=== PATIENT | female | born 1985 | race Caucasian/White ===

== ENCOUNTER 2020-06-23 20:14 | Emergency (ER) | payer MEDICAID, OTHER ==
[~2020-06-23] VITALS: Ht 157.5 cm; Wt 68.0 kg
--- NOTE | 2020-06-23 21:29 | ED General ---
General Stated Complaint: MIGRAINE Source of Information: Patient Exam Limitations: No Limitations History of Present Illness Date Seen by Provider: June 23, 2020 Time Seen by Provider: 21:20 Initial Comments To ER with severe headache. She rates it at 12 out of 10. It began yesterday and started very mild. It has progressed throughout the course of the day and is in the back of her head and behind her eyes. She has light sensitivity and nausea and vomiting. She does not have a history of migraines. Timing/Duration: 1-2 Days Severity: Moderate Associated Systoms: Headaches, Nausea/Vomiting Allergies and Home Medications Allergies Coded Allergies: iodine (Verified Allergy, Unknown, 06/23/20) Patient Home Medication List Home Medication List Reviewed: Yes Review of Systems Review of Systems Constitutional: see HPI EENTM: see HPI Respiratory: no symptoms reported Cardiovascular: no symptoms reported Genitourinary: no symptoms reported Musculoskeletal: no symptoms reported Skin: no symptoms reported Psychiatric/Neurological: Headache Hematologic/Lymphatic: No Symptoms Reported Physical Exam Vital Signs Capillary Refill : Height, Weight, BMI Height: '" Weight: lbs. oz. kg; BMI Method: General Appearance: No Apparent Distress, WD/WN, Other (Cruz her eyes from the light, tearful.) Eyes: Bilateral Eye Normal Inspection, Bilateral Eye PERRL, Bilateral Eye EOMI HEENT: PERRL/EOMI, TMs Normal Neck: Full Range of Motion, Normal Inspection Respiratory: No Accessory Muscle Use, No Respiratory Distress Cardiovascular: Regular Rate, Rhythm, Normal Peripheral Pulses Gastrointestinal: Normal Bowel Sounds, Non Tender, Soft Extremity: Normal Capillary Refill, Normal Inspection Neurologic/Psychiatric: Alert, Oriented x3 Skin: Normal Color, Warm/Dry Progress/Results/Core Measures Suspected Sepsis SIRS Temperature: Pulse: Respiratory Rate: Laboratory Tests 06/23/20 21:24: White Blood Count 6.9 Blood Pressure / Mean: Laboratory Tests 06/23/20 21:24: Creatinine 0.93, Platelet Count 240, Total Bilirubin 0.6 Results/Orders Lab Results Laboratory Tests Test 06/23/20 21:24 Range/Units White Blood Count 6.9 4.3-11.0 10^3/uL Red Blood Count 4.42 3.80-5.11 10^6/uL Hemoglobin 14.0 11.5-16.0 g/dL Hematocrit 42 35-52 % Mean Corpuscular Volume 95 80-99 fL Mean Corpuscular Hemoglobin 32 25-34 pg Mean Corpuscular Hemoglobin Concent 33 32-36 g/dL Red Cell Distribution Width 12.0 10.0-14.5 % Platelet Count 240 130-400 10^3/uL Mean Platelet Volume 9.1 9.0-12.2 fL Immature Granulocyte % (Auto) 0 % Neutrophils (%) (Auto) 61 42-75 % Lymphocytes (%) (Auto) 30 12-44 % Monocytes (%) (Auto) 7 0-12 % Eosinophils (%) (Auto) 1 0-10 % Basophils (%) (Auto) 0 0-10 % Neutrophils # (Auto) 4.1 1.8-7.8 10^3/uL Lymphocytes # (Auto) 2.1 1.0-4.0 10^3/uL Monocytes # (Auto) 0.5 0.0-1.0 10^3/uL Eosinophils # (Auto) 0.1 0.0-0.3 10^3/uL Basophils # (Auto) 0.0 0.0-0.1 10^3/uL Immature Granulocyte # (Auto) 0.0 0.0-0.1 10^3/uL Erythrocyte Sedimentation Rate 11 0-20 MM/HR Sodium Level 139 135-145 MMOL/L Potassium Level 3.8 3.6-5.0 MMOL/L Chloride Level 105 98-107 MMOL/L Carbon Dioxide Level 23 21-32 MMOL/L Anion Gap 11 5-14 MMOL/L Blood Urea Nitrogen 10 7-18 MG/DL Creatinine 0.93 0.60-1.30 MG/DL Estimat Glomerular Filtration Rate > 60 BUN/Creatinine Ratio 11 Glucose Level 92 70-105 MG/DL Calcium Level 9.5 8.5-10.1 MG/DL Corrected Calcium 9.1 8.5-10.1 MG/DL Total Bilirubin 0.6 0.1-1.0 MG/DL Aspartate Amino Transf (AST/SGOT) 35 H 5-34 U/L Alanine Aminotransferase (ALT/SGPT) 56 H 0-55 U/L Alkaline Phosphatase 52 40-136 U/L C-Reactive Protein High Sensitivity 0.08 0.00-0.50 MG/DL Total Protein 7.5 6.4-8.2 GM/DL Albumin 4.5 3.2-4.5 GM/DL Serum Test, Qualitative NEGATIVE NEGATIVE My Orders Orders - DIANE POTTER APRN Ketorolac Injection (Toradol Injection) (06/23/20 21:30) Prochlorperazine Injection (Compazine In (06/23/20 21:30) Diphenhydramine Injection (Benadryl Inje (06/23/20 21:30) Ns Iv 1000 Ml (Sodium Chloride 0.9%) (06/23/20 21:30) Ct Head Wo (06/23/20 21:26) Cbc With Automated Diff (06/23/20:) Comprehensive Metabolic Panel (06/23/20:) Erythrocyte Sedimentation Rate (06/23/20:) Hs C Reactive Protein (06/23/20:) Hcg,Qualitative Serum (06/23/20 21:30) Fentanyl Inj (Sublimaze Injection) (06/23/20 22:15) Vital Signs/I&O Capillary Refill : Departure Impression Primary Impression: Headache Disposition: 01 HOME, SELF-CARE Condition: Stable Departure-Patient Inst. Decision time for Depature: 22:22 Referrals: [facility] (PCP/Family) Primary Care Physician Patient Instructions: Headache, Adult Add. Discharge Instructions: 1. Return to ER for any concerns DIANE POTTER APRN June 23, 2020 21:29
[2020-06-23] MEDS ORDERED: KETOROLAC 30 MG/ML VIAL IVP ONE (21:30)
[2020-06-23] MEDS ORDERED: PROCHLORPERAZINE 10 MG/2ML INJ (COMPAZINE) IV ONE (21:30)
[2020-06-23] MEDS ORDERED: diphenhydrAMINE 50 MG/ML INJ (BENADRYL) IVP ONE (21:30)
[2020-06-23] MEDS ORDERED: NS IV 1000 ML 1,000 ML IV SCH (21:30)
[2020-06-23 21:32] LABS: BASOPHILS % (AUTO) 0 % (0-10); EOSINOPHILS # (AUTO) 0.1 10^3/uL (0.0-0.3); EOSINOPHILS % (AUTO) 1 % (0-10); HEMATOCRIT 42 % (35-52); LYMPHOCYTES # (AUTO) 2.1 10^3/uL (1.0-4.0); LYMPHOCYTES % (AUTO) 30 % (12-44); MEAN CORPUSCULAR HEMOGLOBIN 32 pg (25-34); MEAN CORPUSCULAR HGB CONC 33 g/dL (32-36); MEAN CORPUSCULAR VOLUME 95 fL (80-99); MEAN PLATELET VOLUME 9.1 fL (9.0-12.2); MONOCYTES # (AUTO) 0.5 10^3/uL (0.0-1.0); MONOCYTES % (AUTO) 7 % (0-12); NEUTROPHILS # (AUTO) 4.1 10^3/uL (1.8-7.8); NEUTROPHILS % (AUTO) 61 % (42-75); PLATELET COUNT 240 10^3/uL (130-400); WHITE BLOOD COUNT 6.9 10^3/uL (4.3-11.0)
[2020-06-23 21:44] LABS: ALBUMIN 4.5 GM/DL (3.2-4.5); CHLORIDE 105 MMOL/L (98-107); POTASSIUM 3.8 MMOL/L (3.6-5.0); SODIUM 139 MMOL/L (135-145)
[2020-06-23 21:45] LABS: CALCIUM 9.5 MG/DL (8.5-10.1)
[2020-06-23 21:46] LABS: GLUCOSE 92 MG/DL (70-105); TOTAL PROTEIN 7.5 GM/DL (6.4-8.2)
[2020-06-23 21:47] LABS: CARBON DIOXIDE 23 MMOL/L (21-32)
[2020-06-23 21:48] LABS: BILIRUBIN,TOTAL 0.6 MG/DL (0.1-1.0)
[2020-06-23 21:50] LABS: ALKALINE PHOSPHATASE 52 U/L (40-136); CREATININE SERUM 0.93 MG/DL (0.60-1.30); GFR ESTIMATED > 60
[2020-06-23 21:51] LABS: BUN/CREATININE RATIO 11; ERYTHROCYTE SEDIMENTATION RATE 11 MM/HR (0-20)
[2020-06-23 21:53] LABS: ALANINE AMINOTRANSFERASE 56 U/L (0-55)
--- NOTE | 2020-06-23 21:59 | Diagnostic Imaging Report ---
INDICATION: Severe headache. TECHNIQUE: Multiple contiguous axial images were obtained through the brain without the use of intravenous contrast. Auto Exposure Controls were utilized during the CT exam to meet ALARA standards for radiation dose reduction. EXAMINATION: Noncontrast brain CT was performed. FINDINGS: There is no extra-axial fluid collection. No intracranial hemorrhage. No intracranial mass or mass effect. No midline shift. The ventricles are normal in size and position. There is no focal parenchymal abnormality in the brain. Orbital contents are unremarkable. Visualized portions of the sinuses are clear. IMPRESSION: Negative noncontrast brain CT. Dictated by: Dictated on workstation # [id number]
[2020-06-23] MEDS ORDERED: fentaNYL INJ 100 MCG/2 ML AMP IVP ONE (22:15)
[2020-06-23 23:13] VITALS: BP 96/61
== END 2020-06-23 23:13 | disposition home or self-care (01) ==
LOC: EDUNIT# 20:14 → ER 20:17
DX: R51.9 Headache, unspecified (principal); Z91.041 Radiographic dye allergy status
CPT/HCPCS: 36415; 70450; 80053; 84703; 85025; 85652; 86141; 96374; 96375

== ENCOUNTER 2021-05-04 22:20 | Emergency (ER) | payer BC, MEDICAID ==
[~2021-05-04] VITALS: Ht 158 cm; Wt 68.0 kg
[2021-05-04 22:26] VITALS: BP 117/67
[2021-05-04] MEDS ORDERED: HYDROcodone/APAP 5 MG/325 MG (LORTAB) TAB PO ONE (22:30)
[2021-05-04] MEDS ORDERED: ATOR10TA66 (22:30)
[2021-05-04] MEDS ORDERED: HYDR200T46 (22:30)
[2021-05-04] MEDS ORDERED: IBUPROFEN 800 MG (MOTRIN) TAB PO ONE (22:30)
[2021-05-04] MEDS ORDERED: ACHD5005 PO (22:36)
--- NOTE | 2021-05-04 22:37 | ED Fall/Injury ---
General Chief Complaint: Trauma-Non Activation Stated Complaint: FELL ON TAILBONE SKATING; PAIN; HEADACHE Source: patient Exam Limitations: no limitations (DIANE POTTER APRN) History of Present Illness Date Seen by Provider: May 04, 2021 Time Seen by Provider: 22:33 Initial Comments To ER with reports that she was rollerskating at her daughter's birthday alliance party when she fell backwards directly onto her buttock and now has severe tailbone pain. Occurred: just prior to arrival Injuries/Pain Location: back Context: unknown Loss of Consciousness: no loss of consciousness Associated Symptoms (Fall): Denies Symptoms (DIANE POTTER APRN) Allergies and Home Medications Allergies Coded Allergies: iodine (Verified Allergy, Unknown, 06/23/20) Patient Home Medication List Home Medication List Reviewed: Yes (DIANE POTTER APRN) Atorvastatin Calcium (Atorvastatin Calcium) 10 Mg Tablet, (Reported) Entered as Reported by: OUMOU PATEL on 05/04/212229 Last Action: New Order Hydrocodone/Acetaminophen (Hydrocodone-Acetamin 5-325 mg) 1 Each Tablet, 1 TAB PO Q4H PRN for PAIN-MODERATE (5-7) Prescribed by: DIANE POTTER on 05/04/212236 Hydroxychloroquine Sulfate (Hydroxychloroquine Sulfate) 200 Mg Tablet, (Reported) Entered as Reported by: OUMOU PATEL on 05/04/212229 Last Action: New Order Review of Systems Review of Systems Constitutional: see HPI Eyes: No Symptoms Reported Ears, Nose, Mouth, Throat: no symptoms reported Respiratory: no symptoms reported Cardiovascular: no symptoms reported Genitourinary: no symptoms reported Musculoskeletal: see HPI, back pain Skin: no symptoms reported Psychiatric/Neurological: No Symptoms Reported (DIANE POTTER APRN) Past Qclxulk-Yvpfkr-Oevnvh Hx Seasonal Allergies Seasonal Allergies: No (DIANE POTTER APRN) Past Medical History Surgeries: Yes Tubal Ligation Respiratory: No Cardiac: Yes High Cholesterol Neurological: No UNDERCOVER COP History: Tubal Ligation Genitourinary: No Gastrointestinal: No Musculoskeletal: No Endocrine: Yes Lupus HEENT: No Cancer: No Psychosocial: Yes Anxiety, Depression Integumentary: No (DIANE POTTER APRN) Physical Exam Vital Signs Vital Signs - First Documented 05/04/21 22:26 Temp 36.0 Pulse 97 Resp 18 B/P (MAP) 117/67 (84) Pulse Ox 100 O2 Delivery Room Air (JULIEN CAT MD) Vital Signs Capillary Refill : (DIANE POTTER APRN) Height, Weight, BMI Height: '" Weight: lbs. oz. kg; 27.00 BMI Method: General Appearance: WD/WN, no apparent distress Neck: non-tender, full range of motion Respiratory: no respiratory distress, no accessory muscle use Gastrointestinal: normal bowel sounds, non tender, soft Back: normal inspection, vertebral tenderness, other (Tender to palpation over the sacrum and coccyx. No erythema no ecchymosis.) Extremities: normal range of motion, non-tender, other (Abrasion left knee ambulatory without assistive device to remain.) Neurologic/Psychiatric: alert, normal mood/affect, oriented x 3 Skin: normal color, warm/dry (DIANE POTTER APRN) [place] Coma Score Best Eye Response: (4) Open Spontaneously Best Verbal Response: (5) Oriented Best Motor Response: (6) Obeys Commands [place] Total: 15 (DIANE POTTER APRN) Progress/Results/Core Measures Results/Orders Vital Signs/I&O 05/04/21 22:26 Temp 36.0 Pulse 97 Resp 18 B/P (MAP) 117/67 (84) Pulse Ox 100 O2 Delivery Room Air (JULIEN CAT MD) Departure Impression Primary Impression: Coccygeal fracture Disposition: 01 HOME, SELF-CARE Condition: Stable Departure-Patient Inst. Decision time for Depature: 22:35 (DIANE POTTER APRN) Referrals: [facility] (PCP/Family) Primary Care Physician Patient Instructions: Coccyx Injury ED Add. Discharge Instructions: 1. You may want to get a neck pillow or a doughnut style pillow with a hole in the center so that when you sit down there is no weight being placed on this area. Take a stool softener such as Colace wmcr-ecz-hypcqja to keep your stool soft because you will notice that any straining to have a bowel movement will cause an increase in your pain. Return to ER for any worsening. Follow-up with your doctor next week for recheck. Pain medication as directed in addition to zkfs-zzr-[id number] ibuprofen. All discharge instructions reviewed with patient and/or family. Voiced understanding. Scripts Hydrocodone/Acetaminophen (Hydrocodone-Acetamin 5-325 mg) 1 Each Tablet 1 TAB PO Q4H PRN for PAIN-MODERATE (5-7), #14 TAB Prov: DIANE POTTER APRN 05/04/21 Work/School Note: Work Release Form Date Seen in the Emergency Department: May 04, 2021 Return to Work: May 06, 2021 ATTENDING PHYSICIAN NOTE: I was physically present as attending physician in the emergency department during the care of this patient, but I was not directly involved in the decision making or delivery of care for this patient. (JULIEN CAT MD) DIANE POTTER APRN May 04, 2021 22:37 JULIEN CAT MD May 06, 2021 13:07
--- NOTE | 2021-05-05 07:44 | Diagnostic Imaging Report ---
EXAMINATION: Lumbar spine radiographs, 3 views. COMPARISON: None. HISTORY: 35-year-old female, fall. Low back pain. FINDINGS: There are five lumbar-type vertebral bodies. The alignment of the lumbar spine is unremarkable. There is no identified compression deformity or fracture. The lumbar disc heights are well preserved. Unremarkable appearance of the sacroiliac joints. IMPRESSION: Unremarkable radiographs of the lumbar spine. Dictated by: Dictated on workstation # [id number]
--- NOTE | 2021-05-05 07:44 | Diagnostic Imaging Report ---
EXAMINATION: Radiographs of the sacrum and coccyx, 3 views. COMPARISON: None. HISTORY: 35-year-old female, fall. Sacral pain. FINDINGS: The sacroiliac joints and pubic symphysis are normally aligned. There are pelvic calcifications, likely reflecting phleboliths. There is no identified acute fracture. IMPRESSION: 1. No radiographically apparent fracture of the sacrum or coccyx. 2. Unremarkable appearance of the sacroiliac joints. Dictated by: Dictated on workstation # [id number]
== END 2021-05-04 22:57 | disposition home or self-care (01) ==
LOC: EDUNIT# 22:20 → ER 22:23
DX: S32.2XXA Fracture of coccyx, initial encounter for closed fracture (principal); V00.111A Fall from in-line roller-skates, initial encounter; Y93.51 Activity, roller skating (inline) and skateboarding
CPT/HCPCS: 72100; 72220

== ENCOUNTER 2021-10-14 18:59 | Emergency (ER) | payer BC, MEDICAID ==
[~2021-10-14 18:59] MED LIST: ACHD5005 PO; ATOR10TA66; HYDR200T46
--- NOTE | 2021-10-14 20:39 | ED General ---
General Chief Complaint: COVID19 Suspect/Confirmed Stated Complaint: CONGESTION,COUGH,MAX Nursing Triage Note: PT AMB TO RM 9 WITH C/O COUGH, SOA AT TIMES DURING THE DAY AND BEING AROUND COVID + FAMILY MEMBERS. PT REQUESTING COVID SWAB FOR WORK Source of Information: Patient Exam Limitations: No Limitations History of Present Illness Date Seen by Provider: Oct 14, 2021 Time Seen by Provider: 19:35 Initial Comments This 36-year-old woman presents to the emergency room after waking with COVID- like symptoms this morning including cough, congestion, tightness in her chest, and nausea. Her children have recently tested positive for COVID-19. She has lupus and is on hydroxychloroquine. She also is a smoker. Allergies and Home Medications Allergies Coded Allergies: iodine (Verified Allergy, Unknown, 06/23/20) Patient Home Medication List Home Medication List Reviewed: Yes Atorvastatin Calcium (Atorvastatin Calcium) 10 Mg Tablet, (Reported) Entered as Reported by: OUMOU PATEL on 05/04/212229 Hydrocodone/Acetaminophen (Hydrocodone-Acetamin 5-325 mg) 1 Each Tablet, 1 TAB PO Q4H PRN for PAIN-MODERATE (5-7) Prescribed by: DIANE POTTER on 05/04/212236 Hydroxychloroquine Sulfate (Hydroxychloroquine Sulfate) 200 Mg Tablet, (Reported) Entered as Reported by: OUMOU PATEL on 05/04/212229 Review of Systems Review of Systems Constitutional: no symptoms reported EENTM: see HPI Respiratory: see HPI Cardiovascular: no symptoms reported Gastrointestinal: nausea Genitourinary: no symptoms reported : No Musculoskeletal: back pain, muscle pain, muscle stiffness Skin: no symptoms reported Psychiatric/Neurological: No Symptoms Reported Hematologic/Lymphatic: No Symptoms Reported Immunological/Allergic: see HPI Past Znxhmpl-Acobhq-Yfzfps Hx Patient Social History Tobacco Use?: Yes Tobacco type used: Cigarettes Smoking Status: Current Everyday Smoker Substance use?: No Alcohol Use?: No Pt feels they are or have been: No Immunizations Up To Date Influenza Vaccine Up-to-Date: No; Not Current First/Initial COVID19 Vaccinat: YES Second COVID19 Vaccination Robe: YES COVID19 Vaccine Parking Meter Servicer: MODERNA Seasonal Allergies Seasonal Allergies: No Past Medical History Surgery/Hospitalization HX: tubal, lupus, high lipids Surgeries: Yes Tubal Ligation Respiratory: No Cardiac: Yes High Cholesterol Neurological: No : No Last Menstrual Period: Sep 30, 2021 [employer] History: Tubal Ligation Genitourinary: No Gastrointestinal: No Musculoskeletal: No Endocrine: Yes Lupus HEENT: No Cancer: No Psychosocial: Yes Anxiety, Depression Integumentary: No Physical Exam Vital Signs Vital Signs - First Documented 10/14/21 10/14/21 19:34 22:10 Temp 36.0 Pulse 76 Resp 14 B/P (MAP) 93/56 (68) Pulse Ox 99 Capillary Refill : Height, Weight, BMI Height: '" Weight: lbs. oz. kg; 27.00 BMI Method: General Appearance: No Apparent Distress, WD/WN HEENT: PERRL/EOMI, TMs Normal, Normal ENT Inspection, Pharynx Normal Neck: Normal Inspection Respiratory: Lungs Clear, Normal Breath Sounds, No Accessory Muscle Use, No Respiratory Distress Cardiovascular: Regular Rate, Rhythm, No Edema, No Murmur Gastrointestinal: Non Tender, Soft Extremity: Normal Inspection, No Pedal Edema Neurologic/Psychiatric: Alert, Oriented x3, No Motor/Sensory Deficits, Normal Mood/Affect Skin: Normal Color, Warm/Dry Progress/Results/Core Measures Suspected Sepsis SIRS Temperature: Pulse: 76 Respiratory Rate: 14 Blood Pressure 93 /56 Mean: 68 Results/Orders Lab Results Laboratory Tests Test 10/14/21 19:40 Range/Units Influenza Type A (RT-PCR) Not Detected Not Detecte Influenza Type B (RT-PCR) Not Detected Not Detecte SARS-CoV-2 RNA (RT-PCR) Detected H Not Detecte My Orders Orders - JULIEN CAT MD Covid 19 Inhouse Test (10/14/21 19:35) Influenza A And B By Pcr (10/14/21 19:35) Bebtelovimab (Bebtelovimab) (10/14/21 20:45) Medications Given in ED Current Medications Medications Dose Ordered Sig/Alivia Route Start Time Stop Time Status Last Admin Dose Admin Bebtelovimab 175 mg ONCE ONCE IV 10/14/21 20:45 10/14/21 20:46 DC 10/14/21 21:05 175 MG Vital Signs/I&O 10/14/21 10/14/21 19:34 22:10 Temp 36.0 Pulse 76 70 Resp 14 B/P (MAP) 93/56 (68) 95/64 Pulse Ox 99 Capillary Refill : Blood Pressure Mean: 68 Progress Note : Progress Note COVID-19 was detected. Due to her lupus she was offered treatment. Paxlovid was avoided due to possible interactions with her other medications. She was offered monoclonal antibody therapy as an alternative. After discussing the emergency use authorization, risks, and benefits, patient elected to proceed with the treatment. She was discharged home in stable condition. See discharge instructions. Departure Impression Primary Impression: COVID-19 Disposition: 01 HOME, SELF-CARE Condition: Improved Departure-Patient Inst. Decision time for Depature: 20:56 Referrals: [facility] (PCP) Primary Care Physician DANIEL MELGAR APRN (Family) Primary Care Physician Patient Instructions: Bebtelovimab FDA Fact Sheet, COVID-19 ED Add. Discharge Instructions: Drink plenty of clear liquids to stay well-hydrated. Eat a well-balanced diet. Remain active. Get up and walk frequently. Change positions often while sitting or lying in bed. Remaining active will help your breathing. You may use Tylenol (acetaminophen) up to 1000 mg every 6 hours as needed for fever or discomfort. Use Zofran as prescribed for nausea or vomiting. If you have a pulse oximeter, check your oxygen saturations a couple of times a day or anytime you feel short of breath. If you have multiple measurements under 92% or any measurements under 90%, please return to the emergency room. Continue taking your other medications as previously directed. Remain in quarantine for 5 full days starting with your first full day of symptoms. Additionally, you may need to stay in quarantine longer if you have significant symptoms past 5 days. Then mask an additional 5 days after you come out of quarantine. All discharge instructions reviewed with patient and/or family. Voiced understanding. Work/School Note: Work Release Form Date Seen in the Emergency Department: Oct 14, 2021 Return to Work: Oct 19, 2021 Restrictions: Return-No Fever (24hrs), Return-No Vomiting(24hrs) Other Restrictions Listed Below: At least 5 full days of quarantine, then mask additional 5 days. Restrictions: May need longer quarantine if significant symptoms persist past 5 days. Copy Copies To 1: [facility]/JULIEN VERDUGO MD Oct 14, 2021 20:38
[2021-10-14] MEDS ORDERED: BEBTELOVIMAB 175 MG/2 ML VIAL IV ONE (20:45)
[2021-10-14 22:10] VITALS: BP 95/64
== END 2021-10-14 22:14 | disposition home or self-care (01) ==
LOC: EDUNIT# 18:59 → ER 19:02
DX: U07.1 COVID-19 (principal); M32.9 Systemic lupus erythematosus, unspecified; F17.210 Nicotine dependence, cigarettes, uncomplicated; Z79.899 Other long term (current) drug therapy
CPT/HCPCS: 87636; 99283